=== PATIENT | male | born 1980 ===

== ENCOUNTER → 2019-12-16 | Outpatient (CLI) | payer BC ==
[~2019-12-16] MED LIST: CATHETER FLUSH 10 ML SYR IV PRN; HOLD METFORMIN - RECEIVED CONTRAST 20 ML VIAL IV SCH; IOHEXOL 350 MG/ML 100 ML (OMNIPAQUE 350) VIAL IV ONE; NS 100 ML (IVPB) BAG IV ONE
--- NOTE | 2019-12-16 18:40 | Diagnostic Imaging Report ---
PROCEDURE: CT neck soft tissue with contrast. TECHNIQUE: Multiple contiguous axial images were obtained through the neck after the administration of contrast. Auto Exposure Controls were utilized during the CT exam to meet ALARA standards for radiation dose reduction. INDICATION: Tongue mass. COMPARISON: No comparison available. FINDINGS: The visualized intracranial contents demonstrate no mass effect or abnormal intracranial enhancement. The visualized portions of the mastoid air cells are clear. The middle ears appear clear. There is some scattered mucosal thickening within the ethmoids and there is moderate mucosal thickening in the left maxillary sinus. There is mild mucosal thickening in the right. Visualized portions of the orbits are unremarkable. The posterior nasopharynx appears symmetric. The posterior wall of the oropharynx is unremarkable. There is no focal abnormality evident within the tonsillar pillars. There is no displacement of the parapharyngeal fat planes or evidence of an abnormal process within the prevertebral or retropharyngeal space. The oropharynx is partially obscured by streak artifact arising from the patient's dental hardware. There is no convincing evidence of abnormal mucosal hyperenhancement within the tongue itself. The intrinsic musculature along the floor of the mouth appears appropriately symmetric with preservation of normal fat planes. There is no thickening of the epiglottis. The vallecula appear unremarkable. The true vocal fold is symmetric without widening of the anterior commissure. There are no laryngeal erosions. Arytenoid cartilage appears appropriately positioned. The parotid, submandibular, and thyroid glands are unremarkable. There are small multistation cervical lymph nodes present. None of these appear pathologically enlarged by CT criteria and all have a short axis of less than 1 cm. The most prominent node is a left level IIA lymph node with short axis measurement of 8 mm. The vascular structures of the neck demonstrate no significant stenosis or findings of jugular vein thrombosis. The lung apices appear clear. Cervical spine demonstrates mild degenerative endplate changes and uncovertebral spurring at the C6-C7 level. There is no suspicious lytic or blastic lesion. IMPRESSION: 1. The oropharynx itself is mildly obscured due to streak artifact arising from the patient's dental hardware. There is no CT evidence of a convincing region of mucosal hyperenhancement along the visualized portion of the tongue. The intrinsic musculature of the floor of the mouth appears appropriately symmetric. Tonsillar pillars are unremarkable without displacement of the parapharyngeal fat planes. 2. Numerous multistation cervical lymph nodes without evidence of pathologic enlargement. 3. The aerodigestive tract appears appropriately symmetric. 4. No suspicious osseous lesions. 5. Paranasal sinus disease. Dictated by: Dictated on workstation # [id number]
== END ==
LOC: RAD 16:15
PROVIDERS: ATTEND Otolaryngology Otolaryngology/Facial Plastic Surgery
DX: J32.9 Chronic sinusitis, unspecified (principal); K14.8 Other diseases of tongue; R22.1 Localized swelling, mass and lump, neck
CPT/HCPCS: 70491

== ENCOUNTER → 2020-09-03 | Outpatient (CLI) | payer BC ==
--- NOTE | 2020-09-03 08:56 | Diagnostic Imaging Report ---
PROCEDURE: US Gallbladder. TECHNIQUE: Multiple real-time grayscale images were obtained over the right upper quadrant in various projections. INDICATION: Right upper quadrant abdominal pain. The liver measures 13.4 cm in size. No discrete liver mass is detected. Portal vein is patent and shows normal direction of flow. Gallbladder is without stones or sludge. No wall thickening or biliary ductal dilatation is seen. Pancreas is unremarkable. Aorta is nonaneurysmal. IVC is patent. Right kidney is without calculi or hydronephrosis. There is no ascites. IMPRESSION: Unremarkable gallbladder ultrasound. Dictated by: Dictated on workstation # [id number]
== END ==
LOC: RAD 07:35
PROVIDERS: ATTEND Family Medicine
DX: R10.11 Right upper quadrant pain (principal)
CPT/HCPCS: 76705

== ENCOUNTER → 2022-06-09 | Outpatient (CLI) | payer OTHER ==
--- NOTE | 2022-06-09 08:30 | Diagnostic Imaging Report ---
PROCEDURE: US Gallbladder. TECHNIQUE: Multiple real-time grayscale images were obtained over the right upper quadrant in various projections. INDICATION: Right upper quadrant pain Liver parenchyma is homogeneous with normal echotexture. Portal vein is patent with hepatopetal flow. The gallbladder is clear with no stones or wall thickening. Common duct is not dilated. The visualized portions of the pancreas appear normal. Aorta and IVC are normal. Right kidney measures 11.5 cm in length and appears normal. There is no ascites. IMPRESSION: Unremarkable right upper quadrant ultrasound. Dictated by: Dictated on workstation # [id number]
== END ==
LOC: RAD 07:41
PROVIDERS: ATTEND Family Medicine
DX: R10.11 Right upper quadrant pain (principal)
CPT/HCPCS: 76705